=== PATIENT | male | born 1960 | race American Indian/Alaskan Native ===

== ENCOUNTER 2016-08-06 06:06 | Day surgery (SDC) | payer MEDICARE, BC ==
[2013-02-12 10:01] VITALS: PULSE 71
[2016-08-04 10:07] VITALS: BMI 30.2
[2016-08-06] MEDS ORDERED: Lidocaine 2% Inj (20ml) ONE (06:59)
[2016-08-06] MEDS ORDERED: Iodixanol 320 mg/ml 150 ml Bottle IV ONE ×2 (06:59→08:37)
[2016-08-06] MEDS ORDERED: Nitroglycerin 50mg in D5W 50 MG/250 ML BOTTLE IV ONE (06:59)
[2016-08-06 07:10] LABS: ADD MANUAL DIFF? NO
[2016-08-06 07:17] VITALS: TEMP 98
[2016-08-06 07:20] LABS: BASO # 0.04 K/mm3 (0.0-2.0); BASO % 0.3 % (0.0-3.0); EOS # 0.3 (0.0-0.7); EOS % 2.3 % (1.5-5.0); GRAN # 9.32 (1.4-6.5); HEMATOCRIT 35.9 % (42.0-52.0); LYMPH # 2.2 (1.2-3.4); LYMPH % 16.4 % (22.0-35.0); MEAN CELL VOLUME 96.2 fL (80.0-105.0); MEAN CORPUSCULAR HEMOGLOBIN 30.8 pg (25.0-35.0); MEAN PLATELET VOLUME 11.2 fl (7.0-11.0); MONO # 1.5 (0.1-0.6); PLATELET COUNT 351 10^3/uL (120.0-450.0); RED CELL DISTRIBUTION WIDTH 14.6 % (11.5-14.5); WHITE BLOOD COUNT 13.3 10^3/ul (4.5-11.0)
[2016-08-06 07:25] LABS: INR 1.04 (0.93-1.08); PARTIAL THROMBOPLASTIN TIME 29.2 Seconds (23.7-30.8)
[2016-08-06 07:32] LABS: CALCIUM 8.5 mg/dL (8.4-10.5); POTASSIUM 4.3 mmol/L (3.6-5.0)
[2016-08-06] MEDS ORDERED: Midazolam 2 MG/2 ML VIAL ONE (07:56)
[2016-08-06 09:58] VITALS: RESP 20; O2SAT 92
[2016-08-06 10:40] VITALS: BP 180/98; PULSE 80
--- NOTE | 2016-08-06 18:16 | VASCULAR ---
PROCEDURE: 1. Left upper extremity AV fistula angiogram with 2 punctures. 2. Perianastomotic venous angioplasty HISTORY: End-stage renal disease. Malfunctioning AV access PHYSICIAN(S): Jabari Holt MD. TECHNIQUE: The relative risks and indications of the procedure were explained to the patient and consent obtained. The patient was placed supine on the angiography table and the left arm prepped and draped in usual sterile fashion. Conscious sedation and monitoring provided throughout the procedure by a nurse. The left arm AV fistula was punctured just above the wrist with a micropuncture set. A 5 [place] catheter was placed. An overlapping left upper extremity AV fistula angiogram was performed. Central venous imaging was obtained. Pressure was applied near the access site and reflux of the arterial anastomosis attempted. This was suboptimal. The antegrade puncture was removed and a retrograde puncture made in the mid forearm. A 5 [place] catheter was advanced to the anastomosis. Additional imaging was obtained. A 6 [place] sheath was placed the puncture site. 0.014 wire was advanced into the distal left radial artery. Proximal cephalic vein was dilated near the anastomosis. Seven and 8 mm balloons were utilized. No stent was required. Completion angiograms were obtained. The patient tolerated the procedure well. FINDINGS: The patient's left radial fistula is patent at the anastomosis. The proximal cephalic vein in the perianastomotic region is underdeveloped with a focal stenosis noted. The left cephalic vein supplies the upper arm and left basilic system at the elbow. The veins are patent and continuous but not well developed. The central veins are patent. Specifically, the left axillary, left subclavian, innominate and SVC are normal. No collaterals are seen. IMPRESSION: 1. Successful dilatation of the proximal left cephalic vein in the perianastomotic area with 7 and 8 mm balloons 2. Patent central veins. 3. Patent arterial anastomosis.
== END 2016-08-06 10:28 | disposition home or self-care (01) ==
LOC: SDSVAS 06:06
PROVIDERS: ATTEND Radiology Vascular & Interventional Radiology
DX: T82.318A Breakdown (mechanical) of other vascular grafts, initial encounter (principal); I87.1 Compression of vein; I13.2 Hypertensive heart and chronic kidney disease with heart failure and with stage 5 chronic kidney disease, or end stage renal disease; E11.22 Type 2 diabetes mellitus with diabetic chronic kidney disease; I50.9 Heart failure, unspecified; N18.6 End stage renal disease; E66.9 Obesity, unspecified
CPT/HCPCS: 36415; 36902; 80048; 85025; 85610; 85730; 99152; 99153; C1725 ×2; C1769 ×3; C1894; J1644; J2250; J3010

== ENCOUNTER 2017-02-14 11:41 | Day surgery (SDC) | payer MEDICARE, BC ==
[2013-02-12 10:01] VITALS: PULSE 71
[2017-02-10 11:39] VITALS: BMI 31.2
[2017-02-14 12:18] LABS: BASO # 0.04 K/mm3 (0.0-2.0); BASO % 0.3 % (0.0-3.0); EOS # 0.3 (0.0-0.7); EOS % 2.2 % (1.5-5.0); GRAN # 10.85 (1.4-6.5); GRAN % 69.6 % (50.0-68.0); HEMATOCRIT 37.9 % (42.0-52.0); LYMPH # 3.1 (1.2-3.4); MEAN CELL VOLUME 96.4 fl (80.0-105.0); MEAN CORPUSCULAR HEMOGLOBIN 31.3 pg (25.0-35.0); MEAN CORPUSCULAR HGB CONC 32.5 g/dl (31.0-37.0); MEAN PLATELET VOLUME 10.6 fl (7.0-11.0); MONO # 1.2 (0.1-0.6); MONO % 7.9 % (1.0-6.0); RED CELL DISTRIBUTION WIDTH 14.3 % (11.5-14.5); WHITE BLOOD COUNT 15.6 10^3/ul (4.5-11.0)
[2017-02-14 12:41] LABS: CALCIUM 9.8 mg/dL (8.4-10.5)
[2017-02-14 12:49] LABS: INR 1.12 (0.93-1.08); PARTIAL THROMBOPLASTIN TIME 30.5 Seconds (25.1-36.5)
[2017-02-14] MEDS ORDERED: Iodixanol 320 MG/ML 100 ML BOTTLE IV ONE (13:47)
[2017-02-14] MEDS ORDERED: Lidocaine 2% Inj (20ml) ONE (13:47)
[2017-02-14] MEDS ORDERED: Midazolam 2 MG/2 ML VIAL ONE ×2 (13:47→14:50)
[2017-02-14] MEDS ORDERED: Nitroglycerin 50mg in D5W 0 MG/0 ML BOTTLE IV ONE (13:48)
[2017-02-14] MEDS ORDERED: Oxycodone/Acetaminophen 5/325 mg Tab PO PRN (16:52)
[2017-02-14 17:30] VITALS: PULSE 84; RESP 18; TEMP 97.9; O2SAT 99
[2017-02-14 18:32] VITALS: BP 176/90
--- NOTE | 2017-02-14 20:31 | VASCULAR ---
PROCEDURE: 1. Left upper extremity AV fistula angiogram. 2. Left Perianastomotic venous angioplasty HISTORY: End-stage renal disease. Malfunctioning AV access PHYSICIAN(S): Jabari Holt MD. TECHNIQUE: The relative risks and indications of the procedure were explained to the patient and consent obtained. The patient was placed supine on the angiography table and the left arm prepped and draped in usual sterile fashion. Conscious sedation and monitoring provided throughout the procedure by a nurse. The left arm AV fistula was punctured in a retrograde direction with ultrasound guidance directed toward the anastomosis with a micropuncture set. A 5 [place] catheter was placed. An overlapping left upper extremity AV fistula angiogram was performed. Central venous imaging was obtained. A 6 [place] sheath was placed at the puncture site. Most this was crossed with an angled Glidewire and 4 [place] catheter. 0.014 guidewire was placed the left brachial artery. The stenotic perianastomotic segment was dilated with 6 and 7 mm balloons. No stent was placed. The sheath was removed hemostasis obtained. The patient tolerated the procedure well. FINDINGS: The patient's left radial-cephalic fistula is patent. Once again is noted a 5 cm long perianastomotic stenosis. This was dilated with 6 and 7 mm balloons. The venous outflow in the forearm is somewhat underdeveloped. Contrast flows into the cephalic and basilic system. The central veins are widely patent. No central stenosis is appreciated. IMPRESSION: 1. Recurrent perianastomotic stenosis 2. Successful dilatation with 6 and 7 mm balloons. 3. Widely patent central veins.
== END 2017-02-14 18:45 | disposition home or self-care (01) ==
LOC: SDSVAS 11:41
PROVIDERS: ATTEND Radiology Vascular & Interventional Radiology
DX: T82.858A Stenosis of other vascular prosthetic devices, implants and grafts, initial encounter (principal); Y83.2 Surgical operation with anastomosis, bypass or graft as the cause of abnormal reaction of the patient, or of later complication, without mention of misadventure at the time of the procedure; I13.2 Hypertensive heart and chronic kidney disease with heart failure and with stage 5 chronic kidney disease, or end stage renal disease; N18.6 End stage renal disease; I50.9 Heart failure, unspecified; Z99.2 Dependence on renal dialysis
CPT/HCPCS: 36415; 36902; 80048; 85025; 85610; 85730; 99152; C1725 ×2; C1760; C1769 ×3; C1887; C1894; J1644; J2250; J2405; J3010; Q9967

== ENCOUNTER 2017-06-07 09:25 | Day surgery (SDC) | payer MEDICARE, BC ==
[2013-02-12 10:01] VITALS: PULSE 71
[2017-06-07 09:53] VITALS: BMI 31.2
[2017-06-07 10:48] VITALS: RESP 16
[2017-06-07 13:00] VITALS: BP 153/79; PULSE 81; TEMP 98.5; O2SAT 91
== END 2017-06-07 12:50 | disposition home or self-care (01) ==
LOC: ENDO 09:25
PROVIDERS: ATTEND Internal Medicine Gastroenterology
DX: K20.9 Esophagitis, unspecified (principal); K29.80 Duodenitis without bleeding; K29.50 Unspecified chronic gastritis without bleeding; K31.9 Disease of stomach and duodenum, unspecified; E11.22 Type 2 diabetes mellitus with diabetic chronic kidney disease; N18.6 End stage renal disease
CPT/HCPCS: 43239; 82948; 88305; 88342; J7040

== ENCOUNTER 2017-07-19 08:01 | Day surgery (SDC) | payer MEDICARE, BC ==
[2013-02-12 10:01] VITALS: PULSE 71
[2017-07-14 09:18] VITALS: BMI 31.6
[2017-07-19] MEDS ORDERED: Propofol 10 mg/ml Inj (20 ML) ONE (09:53)
[2017-07-19] MEDS ORDERED: Etomidate 20 mg/10ml Inj IV ONE (09:53)
[2017-07-19] MEDS ORDERED: Sodium Chloride 0.9% 1,000 ML IV SCH (10:30)
[2017-07-19 11:18] VITALS: BP 146/85; O2SAT 96
[2017-07-19 12:33] VITALS: PULSE 82; RESP 16; TEMP 98.3
== END 2017-07-19 11:57 | disposition home or self-care (01) ==
LOC: ENDO 08:01
PROVIDERS: ATTEND Internal Medicine Gastroenterology
DX: K63.5 Polyp of colon (principal); K57.30 Diverticulosis of large intestine without perforation or abscess without bleeding; K64.8 Other hemorrhoids; K59.00 Constipation, unspecified
CPT/HCPCS: 45380; 88305; J2704; J7040 ×2

== ENCOUNTER 2017-10-27 11:02 | Day surgery (SDC) | payer MEDICARE, BC ==
[2013-02-12 10:01] VITALS: PULSE 71
[2017-10-25 12:34] VITALS: BMI 30.7
[2017-10-27 11:50] LABS: BASO # 0.03 K/mm3 (0.0-2.0); BASO % 0.3 % (0.0-3.0); EOS # 0.3 (0.0-0.7); EOS % 2.8 % (1.5-5.0); GRAN # 8.1 (1.4-6.5); GRAN % 67.8 % (50.0-68.0); HEMOGLOBIN 10.2 g/dL (14.0-18.0); LYMPH # 2.2 (1.2-3.4); MEAN CELL VOLUME 91.2 fl (80.0-105.0); MEAN CORPUSCULAR HEMOGLOBIN 29.1 pg (25.0-35.0); MEAN CORPUSCULAR HGB CONC 31.9 g/dl (31.0-37.0); MEAN PLATELET VOLUME 10.1 fl (7.0-11.0); MONO # 1.3 (0.1-0.6); MONO % 11.1 % (1.0-6.0); RBC 3.51 10^6/uL (3.5-6.1); RED CELL DISTRIBUTION WIDTH 15.3 % (11.5-14.5)
[2017-10-27 11:55] LABS: INR 1.18; PROTHROMBIN TIME 13.6 SECONDS (9.4-12.5)
[2017-10-27 11:58] LABS: PARTIAL THROMBOPLASTIN TIME 31.5 Seconds (25.1-36.5)
[2017-10-27 12:04] VITALS: RESP 18; O2SAT 97
[2017-10-27] MEDS ORDERED: Lidocaine PF 2% (5 ml) Inj (For Cardiac Arrhy) ONE (12:35)
[2017-10-27] MEDS ORDERED: Iodixanol 320 MG/ML 200 ML BOTTLE IV ONE (12:35)
[2017-10-27] MEDS ORDERED: Nitroglycerin 50mg in D5W 50 MG/250 ML BOTTLE IV ONE (12:35)
[2017-10-27] MEDS ORDERED: Midazolam 2 MG/2 ML VIAL ONE (13:30)
--- NOTE | 2017-10-27 14:47 | VASCULAR ---
Procedure: Left upper extremity AV fistula angiogram Perianastomotic venous angioplasty History: End-stage renal disease. Malfunctioning left upper extremity AV fistula Technique: The relative risks and indications of the procedure were explained the patient and consent obtained. Patient placed supine on the arteriogram table left arm extended. On station monitoring were provided through out the procedure by a nurse The left AV fistula was punctured in the mid forearm directed towards the wrist under ultrasound guidance. Six [place] sheath was placed. An overlapping left upper extremity AV fistula angiogram was performed. Catheter was used to cross anastomosis. Imaging anastomosis was performed. Exchange is made for a 0.018 support wire. Recurrent stenosis at the left anastomosis was dilated with a 6 mm x 6 cm balloon. An improved angiographic result was obtained. The sheath was removed hemostasis obtained with a purse string suture. Impression: Recurrent stenosis of left AV fistula in the perianastomotic area. Successful dilatation of the left perianastomotic vein with a 6 mm balloon.
[2017-10-27 17:23] VITALS: BP 156/88; PULSE 72; TEMP 97.7
== END 2017-10-27 16:45 | disposition home or self-care (01) ==
LOC: SDSVAS 11:02
PROVIDERS: ATTEND Radiology Vascular & Interventional Radiology
DX: T82.858A Stenosis of other vascular prosthetic devices, implants and grafts, initial encounter (principal); I13.2 Hypertensive heart and chronic kidney disease with heart failure and with stage 5 chronic kidney disease, or end stage renal disease; E11.22 Type 2 diabetes mellitus with diabetic chronic kidney disease; N18.6 End stage renal disease; I50.9 Heart failure, unspecified; Z99.2 Dependence on renal dialysis; Y83.2 Surgical operation with anastomosis, bypass or graft as the cause of abnormal reaction of the patient, or of later complication, without mention of misadventure at the time of the procedure
CPT/HCPCS: 36415; 36902; 80048; 85025; 85610; 85730; 99152; C1725; C1760; C1769 ×2; C1894; J1644; J2250; J2405; J3010; Q9966

== ENCOUNTER 2018-05-02 19:07 | Emergency (ER) | payer MEDICARE, BC ==
[2018-05-02 19:07] VITALS: PULSE 71; BMI 30.7
[2018-05-02 19:59] VITALS: TEMP 98.3
--- NOTE | 2018-05-02 20:08 | ED PDOC ---
Arrival/HPI - General Chief Complaint: Trauma Time Seen by Provider: 05/02/18 19:23 Historian: Patient - History of Present Illness Narrative History of Present Illness (Text): 05/02/18 20:08 58 year old male, whose past medical history includes ESRD and CHF, presents to the emergency department for evaluation of injury to right fifth finger, status post mechanical fall. Patient states he was walking and tripped, falling onto his outstretched hand. Patient states he feels he may have dislocated it, and put it back in place himself. Patient complains of swelling and some discomfort to the finger. Patient denies any other injuries. Patient denies any fevers, chills, headache, dizziness, chest pain, shortness of breath, cough, abdominal pain, nausea, vomiting, diarrhea, back pain, neck pain, or any other complaint. Time/Duration: Prior to Arrival Symptom Onset: Sudden Symptom Course: Unchanged Quality: Aching Activities at Onset: Light Context: Walking Past Medical History - Provider Review Nursing Documentation Reviewed: Yes - Infectious Disease Hx of Infectious Diseases: None - Tetanus Immunization Tetanus Immunization: Unknown - Cardiac Hx Pacemaker: No - Pulmonary Hx Respiratory Disorders: No - Neurological Hx Paralysis: No - HEENT Hx HEENT Disorder: Yes (BLEED LEFT EYE,BROKEN INCISOR DUE TO FALL) Other/Comment: WEARS RX GLASSES - Renal Hx Renal Disorder: Yes Hx Dialysis: Yes (MWF) - Endocrine/Metabolic Hx Endocrine Disorders: Yes Hx Diabetes Mellitus Type 2: Yes - Hematological/Oncological Hx Blood Transfusions: Yes (2012) Hx Blood Transfusion Reaction: No - Integumentary Hx Dermatological Disorder: No - Musculoskeletal/Rheumatological Hx Musculoskeletal Disorders: Yes (HX RIGHT THUMB FX) - Gastrointestinal Hx Gastrointestinal Disorders: Yes Hx Diverticulitis: Yes - Genitourinary/Gynecological Hx Genitourinary Disorders: No - Psychiatric Hx Emotional Abuse: No Hx Physical Abuse: No Hx Substance Use: No - Surgical History Hx Orthopedic Surgery: Yes (RT THUMB FRACTURE) - Anesthesia Hx Anesthesia Reactions: No Hx Malignant Hyperthermia: No - Suicidal Assessment Feels Threatened In Home Enviroment: No Family/Social History - Physician Review Nursing Documentation Reviewed: Yes Family/Social History: No Known Family HX Smoking Status: Former Smoker Hx Alcohol Use: Yes (RARE) Hx Substance Use: No Hx Substance Use Treatment: No Allergies/Home Meds Allergies/Adverse Reactions: Allergies No Known Allergies Allergy (Verified 06/03/12 17:14) Home Medications: Home Meds Medication Instructions Recorded Confirmed Calcium Acetate [Phoslo] 3 tab PO WM 08/04/16 10/27/17 Losartan [Cozaar] 25 mg PO DAILY 05/27/17 10/27/17 Review of Systems - Physician Review All systems were reviewed & negative as marked: Yes - Review of Systems Constitutional: absent: Fevers, Night Sweats Respiratory: absent: SOB, Cough Cardiovascular: absent: Chest Pain Gastrointestinal: absent: Abdominal Pain, Diarrhea, Nausea, Vomiting Musculoskeletal: absent: Back Pain, Neck Pain Neurological: absent: Headache, Dizziness Physical Exam Vital Signs Reviewed: Yes Vital Signs Temp Pulse Resp BP Pulse Ox 05/02/18 19:50 98.3 F 90 18 152/72 H 95 Temperature: Afebrile Blood Pressure: Hypertensive Pulse: Regular Respiratory Rate: Normal Appearance: Positive for: Well-Appearing, Non-Toxic, Comfortable Pain Distress: None Mental Status: Positive for: Alert and Oriented X 3 - Systems Exam Head: Present: Atraumatic, Normocephalic Pupils: Present: PERRL Extroacular Muscles: Present: EOMI Conjunctiva: Present: Normal Mouth: Present: Moist Mucous Membranes Neck: Present: Normal Range of Motion Respiratory/Chest: Present: Clear to Auscultation, Good Air Exchange. No: Respiratory Distress, Accessory Muscle Use Cardiovascular: Present: Regular Rate and Rhythm, Normal S1, S2. No: Murmurs Abdomen: No: Tenderness, Distention, Peritoneal Signs Back: Present: Normal Inspection Upper Extremity: Present: Swelling (Swelling to the PIP joint of right 5th finger), Neurovascularly Intact. No: Normal ROM (Decreased ROM and discomfort on flexion and extension) Lower Extremity: Present: Normal Inspection. No: Edema Neurological: Present: GCS=15, CN II-XII Intact, Speech Normal Skin: Present: Warm, Dry, Normal Color. No: Rashes Psychiatric: Present: Alert, Oriented x 3, Normal Insight, Normal Concentration Medical Decision Making ED Course and Treatment: 05/02/18 20:17 Impression: 58 year old male presents with injury to right 5th finger Plan: -- X-ray right hand -- Reassess and disposition Prior Visits: Notes and results from previous visits were reviewed Progress Notes: - RAD Interpretation Narrative RAD Interpretations (Text): 05/02/18 21:03 Right Hand- Fracture right 5th finger proximally Radiology Orders: 05/02/18 20:03 HAND RIGHT 5TH DIGIT (FINGER) [RAD] Stat Well Drill Operator: ED Physician - Scribe Statement The provider has reviewed the documentation as recorded by the Yairibe Jabari Beaulieu Provider Scribe Attestation: All medical record entries made by the Scribe were at my direction and personally dictated by me. I have reviewed the chart and agree that the record accurately reflects my personal performance of the history, physical exam, medical decision making, and the department course for this patient. I have also personally directed, reviewed, and agree with the discharge instructions and disposition. Disposition/Present on Arrival - Present on Arrival Any Indicators Present on Arrival: No History of DVT/PE: No History of Uncontrolled Diabetes: Yes Urinary Catheter: No History of Decub. Ulcer: No History Surgical Site Infection Following: None - Disposition Have Diagnosis and Disposition been Completed?: Yes Diagnosis: Finger fracture Disposition: HOME/ ROUTINE Disposition Time: 21:04 Patient Plan: Discharge Condition: GOOD Discharge Instructions (ExitCare): Finger Fracture (DC) Additional Instructions: Maintain splint/must follow up with the orthopedist this week . Prescriptions: Naproxen [Naprosyn] 500 mg PO BID PRN #12 tab PRN Reason: Pain Referrals: Leroy Barnett DO [Staff Provider] - Follow up with primary Forms: [facility] ([place])
[2018-05-03 03:35] VITALS: BP 151/76; PULSE 68; RESP 17; O2SAT 99
--- NOTE | 2018-05-03 08:04 | RAD ---
Date of service: 05/02/2018 PROCEDURE: Right small finger radiographs. HISTORY: injury COMPARISON: None. TECHNIQUE: AP radiograph of the right hand, as well as spot oblique and lateral images of small finger were obtained. FINDINGS: RIGHT SMALL FINGER: Spinal fracture proximal phalanx right 5th digit diaphysis. No dislocation. Fracture is minimally distally displaced. Remainder of the right hand (as seen on the AP view) grossly unremarkable. JOINTS: Normal. SOFT TISSUES: Normal. OTHER FINDINGS: None. IMPRESSION: Spiral fracture right 5th digit proximal phalanx diaphysis. No dislocation.
== END 2018-05-02 21:46 | disposition home or self-care (01) ==
LOC: ED 19:07
DX: S62.616A Displaced fracture of proximal phalanx of right little finger, initial encounter for closed fracture (principal); W01.0XXA Fall on same level from slipping, tripping and stumbling without subsequent striking against object, initial encounter; Y93.01 Activity, walking, marching and hiking; I50.9 Heart failure, unspecified; N18.6 End stage renal disease; Z99.2 Dependence on renal dialysis; Z87.891 Personal history of nicotine dependence; E11.9 Type 2 diabetes mellitus without complications